=== PATIENT | female | born 1990 ===

== ENCOUNTER 2017-08-11 07:47 | Day surgery (SDC) | payer OTHER ==
[2017-08-04 10:33] VITALS: BMI 24.8
[2017-08-11] MEDS ORDERED: Lactated Ringer's 1,000 ML IV ONE ×2 (09:00→11:19)
[2017-08-11] MEDS ORDERED: Methylene Blue 10 mg/mL(10ml) IV ONE ×2 (09:48→10:35)
[2017-08-11] MEDS ORDERED: Propofol 10 mg/ml Inj (20 ML) ONE (09:48)
[2017-08-11] MEDS ORDERED: Succinylcholine 200 mg/10 ml Inj IV ONE (09:49)
[2017-08-11] MEDS ORDERED: Rocuronium 10 mg/ml (5 ml) ONE (09:49)
[2017-08-11] MEDS ORDERED: metroNIDAZOLE 500mg/100ml NS 0 ML IVPB ONE (09:49)
[2017-08-11] MEDS ORDERED: ceFAZolin IV 1 gm in Dextrose 1 GM/50 ML BAG IVPB ONE (09:49)
[2017-08-11] MEDS ORDERED: Midazolam 2 MG/2 ML VIAL ONE (09:49)
[2017-08-11] MEDS ORDERED: Neostigmine Methylsulfate 3mg/3ml Syringe IV ONE (09:58)
[2017-08-11] MEDS ORDERED: Bupivacaine 0.5% Inj(30mL) ONE (11:00)
[2017-08-11] MEDS ORDERED: Bupivacaine 0.5% Inj(30mL) IJ ONE (11:11)
--- NOTE | 2017-08-11 11:25 | PCM.SURG1 ---
Surgeon's Initial Post Op Note - Surgeon's Notes Surgeon: Dr. Trevino Construction Producer: Dr. Gutierrez PGY2, Dr. Jaquez PGY1 Type of Anesthesia: General Endo Pre-Operative Diagnosis: Pilonidal Cyst Operative Findings: See Operative Note Post-Operative Diagnosis: Pilonidal Cyst Operation Performed: Pilonidal Cystectomy Specimen/Specimens Removed: Pilonidal Cyst and Pilonidal Sinus Estimated Blood Loss: EBL {In ML}: 1 Blood Products Given: N/A Drains Used: No Drains Post-Op Condition: Good Date of Surgery/Procedure: 08/11/17 Time of Surgery/Procedure: 11:25
[2017-08-11] MEDS ORDERED: Oxycodone/Acetaminophen 5/325 mg Tab PO PRN (11:26)
--- NOTE | 2017-08-11 11:36 | CP.SDSHP ---
Same Day Surgery H & P - Allergies Allergies: Allergies No Known Allergies Allergy (Verified 08/11/17 08:08) - Physical Exam Vital Signs: Vital Signs 08/11/17 09:00 Temperature 98.4 F Pulse Rate 71 Respiratory 18 Rate Blood Pressure 97/56 L O2 Sat by Pulse 99 Oximetry Short Stay Discharge - Short Stay Discharge Admitting Diagnosis/Reason for Visit: L05.91 Disposition: HOME/ ROUTINE Referrals: Neto Decker MD [Primary Care Provider] - Instructions: Pilonidal Cyst (DC) Additional Instructions (Diet, Activity): Follow up in office in 2.5 weeks. You may shower tomorrow, keep area clean no soaking including bath tubs or swimming for two weeks. Take pain medication as instructed on label if you develop and new or worsening symptoms please call your primary care physician, the surgeons office or go to the emergency department.
[2017-08-11] MEDS ORDERED: Lactated Ringer's 1,000 ML IV SCH (11:45)
[2017-08-11] MEDS: HYDROmorphone 0.5 mg/0.5 ml ISec IVP PRN ×2 (11:55→12:23)
[2017-08-11 13:43] VITALS: RESP 18
--- NOTE | 2017-08-11 14:51 | OP ---
PROCEDURE DATE: 08/11/2017 PREOPERATIVE DIAGNOSES: Pilonidal cyst and pilonidal sinus. POSTOPERATIVE DIAGNOSIS: Pilonidal cyst and pilonidal sinus. PROCEDURE: Pilonidal cystectomy. SURGEON: Ten Trevino MD WASTEWATER TREATMENT ENGINEER: SECOND WASTEWATER TREATMENT ENGINEER: Gisele. ANESTHESIA ADMINISTERED BY: Dr. Sanders. TYPE OF ANESTHESIA: General with endotracheal intubation. IV FLUID INTAKE: Crystalloids. ESTIMATED BLOOD LOSS: 10 mL INTRAOPERATIVE FINDINGS: Pilonidal cyst and pilonidal sinus. SPECIMEN: Pilonidal cyst. BRIEF HISTORY: Ms. Maynard is a very pleasant 27-year-old female who presented to my office complaining of area that appeared like a pimple to the patient, it has been chronically draining purulent material. After further investigation, the patient was found to have pilonidal cyst with pilonidal sinus. All the risks and benefits of the procedure were explained to the patient and with the patient having a full understanding of all the risks and benefits involved, informed consent was obtained and the patient was taken to the operating room for above-stated procedure. DESCRIPTION OF PROCEDURE: The patient was brought into the operating room and was intubated on a stretcher. Subsequent to that, after successful intubation by the anesthesia team, the patient was placed in a prone position and subsequent to that, retraction of the buttocks was obtained with white silk tape. At this point in time, the patient's lower back and buttock area were prepped with Betadine and draped in a standard surgical fashion. Prior to the beginning of the procedure, the patient received prophylactic Ancef antibiotic. Time-out was called in the room and everyone in the room were in agreement. Using a probe, the sinus opening was cannulated and at this point in time, using Methylene blue mixed with saline 50:50 was injected into the pilonidal cyst with the pilonidal sinus. At this point in time, elliptical incision was made around the pilonidal cyst including the opening of the pilonidal sinus incorporated into the specimen. Subsequent to that, dissection was carried down with electrical cautery for the subcutaneous tissues and pilonidal cyst was completely excised, it was passed [facility] to the [facility] as a specimen. At this point in time, the wound was copiously irrigated and dried. Hemostasis was achieved with electrical cautery. Subsequent to that, 3 interrupted 3-0 Vicryl sutures were placed in deep tissues to eliminate potential space. At this point in time, several interrupted 3-0 Vicryl sutures were placed in a deep dermal layer and subsequent to that, the patient's wound was injected with 20 mL of Marcaine anesthetic and the skin was closed with 7 interrupted vertical mattress sutures of 2-0 nylon. At this point in time, the patient's lower back and buttocks were washed and dried and clean dressing with 4x4s and some tape were applied to the incision site. The patient was successfully transferred back to the [facility] and extubated by the anesthesia team and taken to the recovery room in a stable condition. At the end of the procedure, all the instrument counts, needles and sponges were correct. Ten Trevino MD
[2017-08-11 15:44] VITALS: O2SAT 97
[2017-08-11 16:40] VITALS: BP 118/72; PULSE 66; TEMP 97.4
== END 2017-08-11 16:30 | disposition home or self-care (01) ==
LOC: H.OPSURG 07:47
PROVIDERS: ATTEND Surgery
DX: L05.91 Pilonidal cyst without abscess (principal)
CPT/HCPCS: 11770; 88305; J0330; J0690; J1170; J2250; J2405; J2704; J2710; J3010; J7030; J7120

== ENCOUNTER 2017-08-21 14:43 | Emergency (ER) | payer OTHER ==
[2017-08-21 14:44] VITALS: BMI 24.8
[2017-08-21] MEDS ORDERED: Oxycodone/Acetaminophen 5/325 mg Tab PO STA (15:41)
[2017-08-21] MEDS ORDERED: Oxycodone/Acetaminophen 5/325 mg Tab ONE (15:56)
[2017-08-21 16:00] LABS: BASO % 0.5 % (0.0-2.0); EOS # 0.3 K/uL (0.0-0.7); EOS % 3.5 % (0.0-4.0); HEMATOCRIT 36.8 % (34.0-47.0); LYMPH # 2.4 K/uL (1.0-4.3); LYMPH % 30.2 % (20.0-40.0); MEAN CORPUSCULAR HEMOGLOBIN 27.9 pg (27.0-31.0); MEAN CORPUSCULAR HGB CONC 33.3 g/dL (33.0-37.0); MEAN PLATELET VOLUME 8.3 fl (7.2-11.7); MONO # 0.5 K/uL (0.0-0.8); MONO % 6.1 % (0.0-10.0); NEUT # 4.7 K/uL (1.8-7.0); NEUT % 59.7 % (50.0-75.0); NRBC % 0.1 % (0.0-0.0); RED CELL DISTRIBUTION WIDTH 13.5 % (11.5-14.5); WHITE BLOOD COUNT 7.8 K/uL (4.8-10.8)
[2017-08-21 16:06] LABS: VENOUS BLOOD GAS BASE EXCESS 1.4 mmol/L (0.0-2.0); VENOUS BLOOD GAS PCO2 52 mmHg (40-60); VENOUS BLOOD PH 7.34 (7.32-7.43)
[2017-08-21 16:07] LABS: BLOOD UREA NITROGEN 13 mg/dl (7-17); CALCIUM 9.1 mg/dL (8.4-10.2); CARBON DIOXIDE 26 mmol/L (22-30); CHLORIDE 103 mmol/L (98-107); GFR AFRICAN-AMERICAN > 60; GLUCOSE,RANDOM 86 mg/dL (65-105); POTASSIUM 4.1 MMOL/L (3.6-5.0); SODIUM 139 mmol/l (132-148)
--- NOTE | 2017-08-21 16:15 | ED PDOC ---
HPI: Wound Care - HPI Time Seen by Provider: 08/21/17 15:23 Chief Complaint (Nursing): Wound Check Chief Complaint (Provider): Wound Care History Per: Patient History Of Present Illness: 27 year old female presents to the ED to be evaluated. The patient states that 10 days ago she had a pilonidal cyst drained and 2 days after the procedure noticed some drainage from the wound site. She states that it has been painful. The patient reports that on Monday she had a fever of 101 but that has since resolved. Past Medical History Reviewed: Historical Data, Nursing Documentation, Vital Signs Vital Signs: Last Vital Signs Temp 99 F 08/21/17 14:58 Pulse 72 08/21/17 14:58 Resp 19 08/21/17 14:58 BP 114/70 08/21/17 14:58 Pulse Ox 99 08/21/17 14:58 - Medical History PMH: No Chronic Diseases - Surgical History Surgical History: (2x) - Family History Family History: States: Unknown Family Hx - Social History Current smoker - smoking cessation education provided: No Ex-Smoker (has not smoked in the last 12 months): No Alcohol: None - Immunization History Hx Tetanus Toxoid Vaccination: No Hx Influenza Vaccination: No Hx Pneumococcal Vaccination: No - Home Medications Home Medications: Ambulatory Orders Medication Instructions Recorded Anullete 1 tab PO DAILY 08/11/17 oxyCODONE/Acetaminophen [Percocet 5 - 325 mg PO Q4 PRN 08/11/17 5/325 mg Tab] Clindamycin [Cleocin] 300 mg PO TID 7 Days cap 08/21/17 Ibuprofen [Motrin Tab] 600 mg PO Q6 #30 tab 08/21/17 - Allergies Allergies/Adverse Reactions: Allergies Allergy/AdvReac Type Severity Reaction Status Date / Time No Known Allergies Allergy Verified 08/11/17 08:08 Review of Systems ROS Statement: Except As Marked, All Systems Reviewed And Found Negative Constitutional: Positive for: Other (pilonidal cyst). Negative for: Fever Physical Exam - Reviewed Nursing Documentation Reviewed: Yes Vital Signs Reviewed: Yes - Physical Exam Appears: Positive for: Non-toxic, No Acute Distress Head Exam: Positive for: ATRAUMATIC, NORMAL INSPECTION, NORMOCEPHALIC Skin: Positive for: Normal Color, Warm, Dry. Negative for: Rash Eye Exam: Positive for: Normal appearance, EOMI, PERRL. Negative for: Nystagmus ENT: Positive for: Normal ENT Inspection. Negative for: Nasal Congestion, Tonsillar Exudate, Tonsillar Swelling Neck: Positive for: Normal, Painless ROM, Supple Cardiovascular/Chest: Positive for: Regular Rate, Rhythm, Chest Non Tender. Negative for: Tachycardia Respiratory: Positive for: Normal Breath Sounds. Negative for: Wheezing, Respiratory Distress Gastrointestinal/Abdominal: Positive for: Normal Exam, Bowel Sounds, Soft. Negative for: Guarding, Rebound Back: Positive for: Normal Inspection, Other (4cm midline incision to upper buttock, serous drainage, no fluctuance/induratoin/erythema, sutures clean and intact) Extremity: Positive for: Normal ROM Neurologic/Psych: Positive for: Alert, Oriented, Gait - Laboratory Results Result Diagrams: 08/21/17 15:54 08/21/17 15:54 - ECG O2 Sat by Pulse Oximetry: 99 (RA) Pulse Ox Interpretation: Normal Medical Decision Making Medical Decision Makin Initial impression 27 y/o female presenting with possible cellulitis and wound check Initial Plan: * VBG * BMP * CBC * Motrin Tab 600mg PO * Oxycodone/Acetaminophen [Percocet 5/325mg Tab] 1 tab PO * Reevaluation 1800 Workup negative. Pt. feeling better, told to f/u w/ Dr. Trevino this week. Return precautions given. Documented by Roberta Peña acting as a scribe for Bentley Carlson MD. All medical record entries made by the Scribe were at my direction and personally dictated by me. I have reviewed the chart and agree that the record accurately reflects my personal performance of the history, physical exam, medical decision making, and the department course for this patient. I have also personally directed, reviewed, and agree with the discharge instructions and disposition. Disposition - Clinical Impression Clinical Impression: Encounter for postoperative wound check - Disposition Referrals: Ten Trevino MD [Staff Provider] - Disposition Time: 17:00 Condition: STABLE Prescriptions: Clindamycin [Cleocin] 300 mg PO TID 7 Days cap Ibuprofen [Motrin Tab] 600 mg PO Q6 #30 tab Instructions: Acute Wound Care (ED) Forms: [employer] (Amharic)
[2017-08-21 18:31] VITALS: BP 128/70; PULSE 78; RESP 17; TEMP 97.6
[2017-08-21 22:24] VITALS: O2SAT 99
== END 2017-08-21 17:30 | disposition home or self-care (01) ==
LOC: H.ER 14:43
DX: Z48.01 Encounter for change or removal of surgical wound dressing (principal)

== ENCOUNTER 2018-12-19 12:45 | Emergency (ER) | payer OTHER ==
[2018-12-19 12:45] VITALS: BMI 24.8
[2018-12-19] MEDS ORDERED: Iohexol 240 (50 ml) PO STA (13:45)
[2018-12-19] MEDS ORDERED: Iohexol 240 (50 ml) ONE (13:55)
[2018-12-19 14:30] LABS: SQUAMOUS EPITHIAL 2 /hpf (0-5); URINE BILIRUBIN NEGATIVE (NEGATIVE); URINE BLOOD SMALL (NEGATIVE); URINE CLARITY SLIGHTY-CLOUDY (Clear); URINE COLOR YELLOW (YELLOW); URINE GLUCOSE (UA) NEG (NEGATIVE); URINE LEUKOCYTE ESTERASE TRACE Leu/uL (Negative); URINE PROTEIN NEGATIVE (NEGATIVE); URINE UROBILINOGEN 0.2-1.0 mg/dL (0.2-1.0)
[2018-12-19 14:49] LABS: ALB/GLOB RATIO 1.3 (1.0-2.1); ALBUMIN 4.9 g/dL (3.5-5.0); ALT/SGPT 50 U/L (9-52); AST/SGOT 43 U/L (14-36); BLOOD UREA NITROGEN 15 mg/dl (7-17); CALCIUM 9.6 mg/dL (8.4-10.2); GFR NON-AFRICAN AMERICAN > 60; LIPASE 75 U/L (23-300)
[2018-12-19 14:53] LABS: BASO % 0.3 % (0.0-2.0); EOS # 0.3 K/uL (0.0-0.7); EOS % 3.6 % (0.0-4.0); HEMOGLOBIN 13.4 g/dL (12.0-16.0); LYMPH # 2.6 K/uL (1.0-4.3); LYMPH % 31.7 % (20.0-40.0); MEAN CELL VOLUME 84.4 fl (81.0-99.0); MEAN CORPUSCULAR HEMOGLOBIN 28.2 pg (27.0-31.0); MEAN CORPUSCULAR HGB CONC 33.4 g/dL (33.0-37.0); MEAN PLATELET VOLUME 8.4 fl (7.2-11.7); MONO # 0.5 K/uL (0.0-0.8); MONO % 6.8 % (0.0-10.0); NEUT # 4.7 K/uL (1.8-7.0); NEUT % 57.6 % (50.0-75.0); NRBC % 0.3 % (0.0-0.0); RBC 4.75 Mil/uL (3.80-5.20); RED CELL DISTRIBUTION WIDTH 13.5 % (11.5-14.5); WHITE BLOOD COUNT 8.1 K/uL (4.8-10.8)
--- NOTE | 2018-12-19 15:39 | ED PDOC ---
HPI: Chest Pain Time Seen by Provider: 12/19/18 13:14 Chief Complaint (Nursing): Abdominal Pain Chief Complaint (Provider): chest pain, dizziness History Per: Patient History/Exam Limitations: no limitations Additional Complaint(s): 28 y/o F with hx of asthma who presents with chest tightness x 3 days. Pt states that began having dysuria about 5 days ago and then began having left sided abdominal pain and watery diarrhea that occurs several times per day. She had chills and night sweats. She has been drinking normally. Denies fever, back pain. She finished a course of antibiotics yesterday that she was taking after tooth extraction. Past Medical History Reviewed: Historical Data, Nursing Documentation, Vital Signs Vital Signs: Last Vital Signs Temp 98.5 F 12/19/18 12:56 Pulse 84 12/19/18 12:56 Resp 16 12/19/18 12:56 BP 90/60 L 12/19/18 12:56 Pulse Ox 98 12/19/18 12:56 - Medical History PMH: No Chronic Diseases - Surgical History Surgical History: (2x) - Family History Family History: States: Unknown Family Hx - Immunization History Hx Tetanus Toxoid Vaccination: No Hx Influenza Vaccination: No Hx Pneumococcal Vaccination: No - Home Medications Home Medications: Ambulatory Orders Medication Instructions Recorded Anullete 1 tab PO DAILY 08/11/17 oxyCODONE/Acetaminophen [Percocet 5 - 325 mg PO Q4 PRN 08/11/17 5/325 mg Tab] Clindamycin [Cleocin] 300 mg PO TID 7 Days cap 08/21/17 Ibuprofen [Motrin Tab] 600 mg PO Q6 #30 tab 08/21/17 - Allergies Allergies/Adverse Reactions: Allergies Allergy/AdvReac Type Severity Reaction Status Date / Time Iodinated Contrast- Oral and Allergy RASH Verified 12/19/18 20:38 IV Dye Review of Systems Constitutional: Positive for: Chills, Sweats. Negative for: Fever Gastrointestinal: Positive for: Abdominal Pain, Diarrhea. Negative for: Nausea, Vomiting Genitourinary Female: Positive for: Dysuria, Frequency Physical Exam - Reviewed Nursing Documentation Reviewed: Yes Vital Signs Reviewed: Yes - Physical Exam Appears: Positive for: Uncomfortable Cardiovascular/Chest: Positive for: Regular Rate, Rhythm Respiratory: Positive for: Normal Breath Sounds Gastrointestinal/Abdominal: Positive for: Soft, Tenderness (LLQ tenderness on palpation). Negative for: Mass, Distended, Guarding, Rebound Back: Positive for: L CVA Tenderness. Negative for: R CVA Tenderness Neurological/Psych: Positive for: Awake, Alert, Oriented - Laboratory Results Result Diagrams: 12/19/18 14:10 12/19/18 14:10 Lab Results: Total Bilirubin 0.8 mg/dl (0.2-1.3) 12/19/18 14:10 AST 43 U/L (14-36) H 12/19/18 14:10 ALT 50 U/L (9-52) 12/19/18 14:10 Alkaline Phosphatase 87 U/L (38-126) 12/19/18 14:10 Total Protein 8.6 G/DL (6.3-8.2) H 12/19/18 14:10 Albumin 4.9 g/dL (3.5-5.0) 12/19/18 14:10 Globulin 3.7 gm/dL (2.2-3.9) 12/19/18 14:10 Albumin/Globulin Ratio 1.3 (1.0-2.1) 12/19/18 14:10 Lipase 75 U/L (23-300) 12/19/18 14:10 Urine Color Yellow (YELLOW) 12/19/18 14:10 Urine Clarity Slighty-cloudy (Clear) 12/19/18 14:10 Urine pH 6.0 (5.0-8.0) 12/19/18 14:10 Ur Specific [place] 1.014 (1.003-1.030) 12/19/18 14:10 Urine Protein Negative mg/dL (NEGATIVE) 12/19/18 14:10 Urine Glucose (UA) Neg mg/dL (NEGATIVE) 12/19/18 14:10 Urine Ketones Negative mg/dL (NEGATIVE) 12/19/18 14:10 Urine Blood Small (NEGATIVE) 12/19/18 14:10 Urine Nitrate Negative (NEGATIVE) 12/19/18 14:10 Urine Bilirubin Negative (NEGATIVE) 12/19/18 14:10 Urine Urobilinogen 0.2-1.0 mg/dL (0.2-1.0) 12/19/18 14:10 Ur Leukocyte Esterase Trace Heather/uL (Negative) 12/19/18 14:10 Urine RBC (Auto) < 1 /hpf (0-3) 12/19/18 14:10 Urine Microscopic WBC 1 /hpf (0-5) 12/19/18 14:10 Ur Squamous Epith Cells 2 /hpf (0-5) 12/19/18 14:10 - ECG O2 Sat by Pulse Oximetry: 98 Medical Decision Making Medical Decision Making: Urine dip CT abd/pelvis w/ PO and IV contrast CBC, CMP, lipase Toradol 30mg IV x 1 NS 1L IV x 1 CT abdomen/pelvis w/ contrast: FINDINGS: LOWER THORAX: Unremarkable. LIVER: Unremarkable. No gross lesion or ductal dilatation. GALLBLADDER AND BILE DUCTS: Unremarkable. PANCREAS: Unremarkable. No gross lesion or ductal dilatation. SPLEEN: Unremarkable. ADRENALS: Unremarkable. No mass. KIDNEYS AND URETERS: Unremarkable. No hydronephrosis. No solid mass. VASCULATURE: Unremarkable. No aortic aneurysm. No atherosclerotic calcification or mural plaque present. BOWEL: Unremarkable. No obstruction. No gross mural thickening. APPENDIX: Normal appendix. PERITONEUM: Unremarkable. No free fluid. No free air. LYMPH NODES: Unremarkable. No enlarged lymph nodes. BLADDER: Unremarkable. REPRODUCTIVE: Bilateral adnexal cysts/follicles. Unremarkable uterus. BONES: No acute fracture. OTHER FINDINGS: None. IMPRESSION: No significant or acute findings to account for/ related to the clinical presentation. Additional benign and/or incidental findings described above. Urine dip: LE trace, nitrate neg, blood trace. U/A and urine culture ordered. U/A: Trace LE; NItrate negative, WBCs 1, trace blood. 17:20: alerted by RN that patient returned from CT scan with itching and rash. Pt re-evaluated. Erythematous, pruritic maculopapular rash on face, chest and back. Benadryl 25mg IV x 1 ordered. Will be re-assessed. Toradol not given as of yet. RN advised to wait until rash resolves to administer. Allergy profile updated in system to reflect allergy to iodinated contrast. Patient had CT scan once prior with contrast w/o reaction. Renal U/S ordered given lack of significant findings on CT scan. Renal U/S: B/L kidneys: Unremarkable. Normal in size and contour. No renal mass or calculus. No hydronephrosis. No acute abnormality evident. No hydronephrosis. 20:00: Pt re-evaluated, rash has resolved, pain persists, pt received Toradol at 19:13. Initial fluids did not run in. Patient endorsed to JOHN Sheth pending re-evaluation. Disposition - Clinical Impression Clinical Impression: Abdominal pain, Left flank pain - Patient ED Disposition Is Patient to be Admitted: Transfer of Care Counseled Patient/Family Regarding: Studies Performed - Disposition Disposition: Transfer of Care Disposition Time: 20:00 Condition: FAIR Forms: [email or web address] (S[place] Arabian)
[2018-12-19] MEDS ORDERED: Iohexol 300 100 ML IJ ONE (16:08)
[2018-12-19] MEDS ORDERED: Sodium Chloride 0.9% 50 ML IV ONE ×2 (16:09)
--- NOTE | 2018-12-19 16:59 | CT ---
Date of service: 12/19/2018 PROCEDURE: CT Abdomen and Pelvis with contrast HISTORY: LLQ abd pain w/ diarrhea COMPARISON: 10/27/2018. Pelvic ultrasound TECHNIQUE: Intravenous contrast dose: 90.1 cc Omnipaque 300. Radiation dose: Total exam DLP = 384.79 mGy-cm. This CT exam was performed using one or more of the following dose reduction techniques: Automated exposure control, adjustment of the mA and/or kV according to patient size, and/or use of iterative reconstruction technique. FINDINGS: LOWER THORAX: Unremarkable. LIVER: Unremarkable. No gross lesion or ductal dilatation. GALLBLADDER AND BILE DUCTS: Unremarkable. PANCREAS: Unremarkable. No gross lesion or ductal dilatation. SPLEEN: Unremarkable. ADRENALS: Unremarkable. No mass. KIDNEYS AND URETERS: Unremarkable. No hydronephrosis. No solid mass. VASCULATURE: Unremarkable. No aortic aneurysm. No atherosclerotic calcification or mural plaque present. BOWEL: Unremarkable. No obstruction. No gross mural thickening. APPENDIX: Normal appendix. PERITONEUM: Unremarkable. No free fluid. No free air. LYMPH NODES: Unremarkable. No enlarged lymph nodes. BLADDER: Unremarkable. REPRODUCTIVE: Bilateral adnexal cysts/follicles. Unremarkable uterus. BONES: No acute fracture. OTHER FINDINGS: None. IMPRESSION: No significant or acute findings to account for/ related to the clinical presentation. Additional benign and/or incidental findings described above.
[2018-12-19] MEDS ORDERED: DiphenhydrAMINE 50 mg/ml Inj ONE (17:20)
[2018-12-19] MEDS ORDERED: DiphenhydrAMINE 50 mg/ml Inj IVP STA (17:22)
[2018-12-19] MEDS ORDERED: Sodium Chloride 0.9% 1,000 ML IV STA ×2 (17:26→19:56)
--- NOTE | 2018-12-19 20:36 | ED PDOC ---
- Laboratory Results Result Diagrams: 12/19/18 14:10 12/19/18 14:10 Lab Results: Total Bilirubin 0.8 mg/dl (0.2-1.3) 12/19/18 14:10 AST 43 U/L (14-36) H 12/19/18 14:10 ALT 50 U/L (9-52) 12/19/18 14:10 Alkaline Phosphatase 87 U/L (38-126) 12/19/18 14:10 Total Protein 8.6 G/DL (6.3-8.2) H 12/19/18 14:10 Albumin 4.9 g/dL (3.5-5.0) 12/19/18 14:10 Globulin 3.7 gm/dL (2.2-3.9) 12/19/18 14:10 Albumin/Globulin Ratio 1.3 (1.0-2.1) 12/19/18 14:10 Lipase 75 U/L (23-300) 12/19/18 14:10 Urine Color Yellow (YELLOW) 12/19/18 14:10 Urine Clarity Slighty-cloudy (Clear) 12/19/18 14:10 Urine pH 6.0 (5.0-8.0) 12/19/18 14:10 Ur Specific [place] 1.014 (1.003-1.030) 12/19/18 14:10 Urine Protein Negative mg/dL (NEGATIVE) 12/19/18 14:10 Urine Glucose (UA) Neg mg/dL (NEGATIVE) 12/19/18 14:10 Urine Ketones Negative mg/dL (NEGATIVE) 12/19/18 14:10 Urine Blood Small (NEGATIVE) 12/19/18 14:10 Urine Nitrate Negative (NEGATIVE) 12/19/18 14:10 Urine Bilirubin Negative (NEGATIVE) 12/19/18 14:10 Urine Urobilinogen 0.2-1.0 mg/dL (0.2-1.0) 12/19/18 14:10 Ur Leukocyte Esterase Trace Heather/uL (Negative) 12/19/18 14:10 Urine RBC (Auto) < 1 /hpf (0-3) 12/19/18 14:10 Urine Microscopic WBC 1 /hpf (0-5) 12/19/18 14:10 Ur Squamous Epith Cells 2 /hpf (0-5) 12/19/18 14:10 - ECG O2 Sat by Pulse Oximetry: 100 - Progress ED Course And Treament: Case endorsed to senior technical writer from Dez Knox PA-C pending re-eval 20:45 Patient sleeping; upon awakening states pain improved Patient educated on findings, discharged with rx Bentyl Advised increase fluid intake, BRAT diet Follow up PMD within 2-3 days Return precautions given Disposition - Clinical Impression Clinical Impression: Abdominal pain, Left flank pain - POA Present On Arrival: None - Disposition Disposition: Routine/Home Disposition Time: 20:46 Condition: IMPROVED Prescriptions: Dicyclomine [Bentyl] 20 mg PO TID PRN #15 tab PRN Reason: Pain, Mild (1-3) Instructions: Acute Abdomen (Belly Pain), Diarrhea in Adolescents and Adults
[2018-12-19 21:34] VITALS: BP 98/59; PULSE 73; RESP 16; TEMP 98.6; O2SAT 98
--- NOTE | 2018-12-20 15:04 | US ---
Date of service: 12/19/2018 PROCEDURE: Ultrasound of the Kidneys HISTORY: evaluate for nephrolithiasis COMPARISON: 09/03/2016. TECHNIQUE: Sonogram of the kidneys. FINDINGS: RIGHT KIDNEY: Measures: 9.5 cm. Normal in size, contour and echogenicity. No stone, solid mass lesion or hydronephrosis visualized. LEFT KIDNEY: Measures: 10.4 cm. Normal in size, contour and echogenicity. No stone, solid mass lesion or hydronephrosis visualized. OTHER FINDINGS: None. IMPRESSION: Unremarkable renal sonogram.
== END 2018-12-19 21:34 | disposition home or self-care (01) ==
LOC: H.ER 12:45
DX: R10.9 Unspecified abdominal pain (principal); Z88.8 Allergy status to other drugs, medicaments and biological substances
CPT/HCPCS: 74177; 76770; 80053; 81003; 81025; 83690; 85025; 87086; 96374; 96375; 99284; J1200; J1885; J7030; Q9966; Q9967

== ENCOUNTER 2019-01-07 09:39 | Emergency (ER) | payer OTHER ==
[2019-01-07 09:59] VITALS: BP 120/78; PULSE 88; TEMP 98.8; BMI 25.2
[2019-01-07 10:05] VITALS: RESP 19; O2SAT 100
[2019-01-07] MEDS ORDERED: Oxycodone/Acetaminophen 5/325 mg Tab PO STA (10:18)
[2019-01-07] MEDS ORDERED: Tmp-Smz 800 mg-160 mg DS Tab PO STA (10:18)
--- NOTE | 2019-01-07 10:27 | ED PDOC ---
HPI: General Adult Time Seen by Provider: 01/07/19 10:06 Chief Complaint (Nursing): Abnormal Skin Integrity Chief Complaint (Provider): Abnormal Skin Integrity History Per: Patient History/Exam Limitations: no limitations Onset/Duration Of Symptoms: Other (1 week) Additional Complaint(s): 28 y/o female presents to the ED complaining of buttock pain thats been ongoing for 1 week. Patient states she had a cyst removed 1 year ago in the same area. Patient states it is now more painful, red, and drainage. She reports she last took Ibuprofen 2 days ago. Patient denies any other symptoms at this time. PMD: DR. Decker Past Medical History Reviewed: Historical Data, Nursing Documentation, Vital Signs Vital Signs: Last Vital Signs Temp 98.8 F 01/07/19 10:02 Pulse 88 01/07/19 10:02 Resp 19 01/07/19 10:02 BP 120/78 01/07/19 10:02 Pulse Ox 100 01/07/19 10:02 Primary Care Provider: Non [facility] Provider, - Surgical History Surgical History: (2x) - Family History Family History: States: Unknown Family Hx - Immunization History Hx Tetanus Toxoid Vaccination: No Hx Influenza Vaccination: No Hx Pneumococcal Vaccination: No - Home Medications Home Medications: Ambulatory Orders Medication Instructions Recorded Anullete 1 tab PO DAILY 08/11/17 oxyCODONE/Acetaminophen [Percocet 5 - 325 mg PO Q4 PRN 08/11/17 5/325 mg Tab] Clindamycin [Cleocin] 300 mg PO TID 7 Days cap 08/21/17 Ibuprofen [Motrin Tab] 600 mg PO Q6 #30 tab 08/21/17 Dicyclomine [Bentyl] 20 mg PO TID PRN #15 tab 12/19/18 Acetaminophen with Codeine 1 tab PO Q6H PRN #10 tab 01/07/19 [Tylenol with Codeine No. 3 300 mg-30 mg] Naproxen [Naprosyn] 500 mg PO BID PRN #15 tablet 01/07/19 Sulfamethoxazole/Trimethoprim 1 tab PO BID #14 tab 01/07/19 [Bactrim DS 800 mg-160 mg] - Allergies Allergies/Adverse Reactions: Allergies Allergy/AdvReac Type Severity Reaction Status Date / Time Iodinated Contrast- Oral and Allergy RASH Verified 12/19/18 20:38 IV Dye Review of Systems ROS Statement: Except As Marked, All Systems Reviewed And Found Negative Musculoskeletal: Positive for: Other (Buttock pain.) Physical Exam - Reviewed Nursing Documentation Reviewed: Yes Vital Signs Reviewed: Yes - Physical Exam Appears: Positive for: Well, Non-toxic, No Acute Distress, Uncomfortable Head Exam: Positive for: ATRAUMATIC, NORMAL INSPECTION, NORMOCEPHALIC Skin: Positive for: Normal Color, Warm, Dry Eye Exam: Positive for: EOMI, Normal appearance, PERRL Gastrointestinal/Abdominal: Positive for: Normal Exam, Soft. Negative for: Tenderness Back: Positive for: Normal Inspection (Blayne Mendoza RN.), Other (Right lateral to midline buttock tenderness; 1cm induration. No fluctuant no drainage, no bleeding no vesicles.) Neurological/Psych: Positive for: Awake, Alert, Normal Tone, Oriented (x3). Negative for: Motor/Sensory Deficits - ECG O2 Sat by Pulse Oximetry: 100 Medical Decision Making Medical Decision Making: Time:1017 Impression: 28 y/o female presents with cellulites. Plan: -ED urine -Bactrim 1tb PO -Motrin 600mg PO -Percocet 1tab PO Scribe Attestation: Documented by Mellissa Livingston, acting as a scribe for Esthela Kincaid. Provider Scribe Attestation: All medical record entries made by the Scribe were at my direction and personal ly dictated by me. I have reviewed the chart and agree that the record accurately reflects my personal performance of the history, physical exam, medical decision making, and the department course for this patient. I have also personally directed, reviewed, and agree with the discharge instructions and disposition. Disposition - Clinical Impression Clinical Impression: Cellulitis of buttock - Disposition Referrals: Neto Decker MD [Family Provider] - Condition: STABLE Additional Instructions: FOLLOW-UP WITH YOUR PRIVATE SURGEON FOR REEVALUATION. Prescriptions: Acetaminophen with Codeine [Tylenol with Codeine No. 3 300 mg-30 mg] 1 tab PO Q6H PRN #10 tab PRN Reason: Pain, Severe (8-10) Naproxen [Naprosyn] 500 mg PO BID PRN #15 tablet PRN Reason: Pain, Moderate (4-7) Sulfamethoxazole/Trimethoprim [Bactrim DS 800 mg-160 mg] 1 tab PO BID #14 tab Instructions: Cellulitis (Skin Infection), Adult (DC) Forms: [employer] (Burmese)
[2019-01-07] MEDS ORDERED: Tmp-Smz 800 mg-160 mg DS Tab ONE (10:46)
[2019-01-07] MEDS ORDERED: Oxycodone/Acetaminophen 5/325 mg Tab ONE (10:47)
== END 2019-01-07 11:08 | disposition home or self-care (01) ==
LOC: H.ER 09:39
DX: L03.317 Cellulitis of buttock (principal); Z88.8 Allergy status to other drugs, medicaments and biological substances